=== PATIENT | female | born 1995 | race Caucasian/White ===

== ENCOUNTER 2016-11-13 08:05 | Emergency (ER) | payer OTHER ==
--- NOTE | ~2016-11-13 | CR21 ---
[facility]. [facility] A Service of [facility] & [facility] RADIOLOGY TEXT RESULTS PATIENT: BOUBACAR ADKINS LOCATION: SED : [birth year] UNIT #: [id number] AGE: [address]: Lisbeth Kent MD SEX: F ORDER DR: [id number] [address] [address] [id number] E MR#: [id number] Acc #: [id number] NAME: BOUBACAR ADKINS : 1995 SEX: F STUDY DATE/TIME: 11/13/2016 7:59 UNIT: SED ROOM: STUDY DESCRIPTION: CR Ankle Min 3 Views Rt Attending Physician: Lisbeth Kent M.D. Ordering Physician: Lisbeth Kent M.D. Primary Care Physician: Primary Care Physician No MEDICAL IMAGING REPORT This report is preliminary unless electronic signature is present. EXAM Right ankle series, 11/13/2016 HISTORY 21-year-old female in the ED complaining of lateral ankle pain and swelling after injury. Tripped on a curb this morning. TECHNIQUE Three-view right ankle series. FINDINGS The examination shows nondisplaced transverse fracture across the distal fibula at the level of the ankle joint. Overlying soft tissue swelling. The remainder of the exam is negative. No additional fracture is identified. IMPRESSION Nondisplaced distal fibula fracture with lateral soft tissue swelling. Dictated by... Ryan Chacon M.D. THIS IS AN ELECTRONICALLY VERIFIED REPORT Ryan Chacon M.D. at 11/13/2016 1:32 PM Dalia TD: 11/13/2016 09:23 JOB #: [id number] MEDICAL IMAGING REPORT Page 1 of 1
[~2016-11-13 08:05] MED LIST: AFRIN15 M1; BENTYL10 MG PO; COLACE PO; DEPO-PROVER150 MG/M1 IM; FLEXERIL10 MG PO; HYDROCODON-ACE1 EA11 PO; HYDROCODON-ACE1 EAC9 PO; LOVENOX40 MG/0.4 INJ; NAPROXEN PO; NO MEDICATIONS; PERCOCET 7.5-31 EACH PO; PHENERGAN25 M1 PO
== END 2016-11-13 08:45 | disposition home or self-care (01) ==
LOC: SED 08:05
DX: S82.831A Other fracture of upper and lower end of right fibula, initial encounter for closed fracture (principal); X50.1XXA Overexertion from prolonged static or awkward postures, initial encounter; Y92.410 Unspecified street and highway as the place of occurrence of the external cause
CPT/HCPCS: 29515; 73610; 99283